=== PATIENT | female | born 1950 | race African-American/Black ===

== ENCOUNTER 2017-12-20 10:03 | Emergency (ER) | payer OTHER, MEDICARE ==
[~2017-12-20] VITALS: Ht 162.6 cm; Wt 64.4 kg
[~2017-12-20 10:03] MED LIST: ASPIRIN81 M4 PO; ATORVASTATIN CA40 M1 PO; CLONAZEPAM1 M2 PO; GLIPIZIDE5 M2 PO; LISINOPRIL20 M1 PO; METFORMIN HCL1000 M1 PO; PAROXETINE HCL40 M1 PO; PLAVIX75 M1 PO; PRAVASTATIN SOD40 M2 PO; ZITHROMAX250 M2 PO
--- NOTE | 2017-12-20 10:12 | ED GENERAL ADULT ---
History of Present Illness General Chief Complaint: General Adult Stated Complaint: BIBA FOR ABNORMAL LABS Source: patient, old records, EMS Exam Limitations: no limitations Vital Signs & Intake/Output Vital Signs & Intake/Output Vital Signs Date Time Temp Pulse Resp B/P B/P Pulse O2 O2 Flow FiO2 Mean Ox Delivery Rate 12/20 1358 96.7 78 18 136/58 96 Room Air 12/20 1144 84 18 117/63 95 Room Air 12/20 1006 98.4 89 18 137/93 97 Room Air Allergies Coded Allergies: nut - unspecified (ANGIODEMA 02/27/16) shellfish derived (UNKNOWN 02/27/16) Reconcile Medications Aspirin (Ecotrin*) 81 MG TABLET.DR 1 TAB PO DAILY HEART HEALTH (Reported) Atorvastatin Calcium 40 MG TABLET 1 TAB PO DAILY HIGH CHOLESTROL Clonazepam 1 MG TABLET 1 TAB PO BIDP PRN anxiety (Reported) Clopidogrel Bisulfate (Plavix) 75 MG TABLET 75 MG PO DAILY STROKE PREVENTION Insulin Glargine,Hum.rec.anlog (Lantus Solostar) 100 UNIT/ML (3 ML) INSULN.PEN 30 UNIT SC QPM DIABETES (Reported) Lisinopril 20 MG TABLET 1 TAB PO DAILY htn (Reported) Metformin HCl 1,000 MG TABLET 1 TAB PO BID diabetes (Reported) Ondansetron HCl 4 MG TABLET 0.5 TAB PO BID NAUSEA (Reported) Paroxetine HCl 40 MG TABLET 1 TAB PO DAILY mood d/o (Reported) Triage Nurses Notes Reviewed? yes HPI: Patient states that she was sent in by her doctor for internal bleeding. Patient states that she had blood work performed recently and received a call from her doctor this morning telling her to come to the emergency department. Patient's only complaint is suprapubic abdominal pain that she has said has been constant for the past few weeks. There is no radiation. There is no aggravating or mitigating factors. The pain is crampy in nature. She rates as mild on the pain scale. Patient states that she had an ultrasound and it showed that both ovaries were on the same side. She states that the ultrasound was done in her doctor's office. She states that a few weeks ago she had one episode of bright red blood per rectum but has not had any episodes since then. Past History Travel History Traveled to [place] past 21 day No Medical History Any Pertinent Medical History? 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 No Review of Systems Review of Systems Constitutional: Reports: no symptoms. EENTM: Reports: no symptoms. Respiratory: Reports: no symptoms. Cardiovascular: Reports: no symptoms. GI: Reports: see HPI, abdominal pain. Genitourinary: Reports: no symptoms. Musculoskeletal: Reports: no symptoms. Skin: Reports: no symptoms. Neurological/Psychological: Reports: no symptoms. Hematologic/Endocrine: Reports: no symptoms. Immunologic/Allergic: Reports: no symptoms. All Other Systems: Reviewed and Negative Physical Exam Physical Exam General Appearance: well developed/nourished, alert, awake, mild distress Head: atraumatic, normal appearance Eyes: Bilateral: PERRL, EOMI. Ears, Nose, Throat: normal pharynx, normal ENT inspection, hearing grossly normal Neck: normal inspection, supple, full range of motion Respiratory: normal breath sounds, chest non-tender, no respiratory distress, lungs clear Cardiovascular: regular rate/rhythm, normal peripheral pulses Gastrointestinal: normal bowel sounds, soft, non-tender, no organomegaly Rectal: normal exam, normal rectal tone, heme negative stool Back: normal inspection, normal range of motion Extremities: normal inspection, normal capillary refill, normal range of motion, no edema Neurologic/Psych: no motor/sensory deficits, awake, alert, oriented x 3, normal mood/affect Skin: intact, normal color, warm/dry Lymphatic: no anterior cervical rubia Core Measures ACS in differential dx? No CVA/TIA Diagnosis: No Sepsis Present: No Sepsis Focused Exam Completed? No Progress Differential Diagnoses I considered the following diagnoses in my evaluation of the patient: [Anemia, electrolyte abnormality, GI bleed, ovarian mass] Plan of Care: Orders Procedure Date/time Status Add-on Test (ER Only) 12/20 1019 Active URINALYSIS 12/20 1019 Complete COMPREHENSIVE METABOLIC PANEL 12/20 1010 Complete CBC WITHOUT DIFFERENTIAL 12/20 1010 Complete TYPE & SCREEN (NOT X-MATCH) 12/20 1010 Complete TROPONIN LEVEL 12/20 1009 Complete MAGNESIUM 12/20 1009 Complete EKG 12/20 1008 Active Laboratory Tests 12/20/17 1150: Urine Color YEL, Urine Clarity CLEAR, Urine pH 7.0, Ur Specific Arnold <= 1.005 , Urine Protein NEG, Urine Ketones NEG, Urine Nitrite NEG, Urine Bilirubin NEG, Urine Urobilinogen 0.2, Ur Leukocyte Esterase NEG, Ur Microscopic EXAM NOT REQUIRED, Urine Hemoglobin NEG, Urine Glucose NEG 12/20/17 1020: CBC w Diff NO MAN DIFF REQ, RBC 4.30, MCV 65.2 L, MCH 20.2 L, MCHC 31.0 L, RDW 20.0 H, MPV 9.1, Gran % 70.5, Lymphocytes % 22.1, Monocytes % 5.0, Eosinophils % 1.3, Basophils % 1.1, Absolute Granulocytes 7.2 H, Absolute Lymphocytes 2.3, Absolute Monocytes 0.5, Absolute Eosinophils 0.1, Absolute Basophils 0.1 12/20/17 1009: Anion Gap 10, Estimated GFR > 60, BUN/Creatinine Ratio 17.5, Glucose 231 H, Calcium 9.5, Magnesium 1.7, Total Bilirubin 0.6, AST 20, ALT 21, Alkaline Phosphatase 78, Troponin I < 0.01, Total Protein 7.4, Albumin 3.9, Globulin 3.5, Albumin/Globulin Ratio 1.1 Diagnostic Imaging: Viewed by Me: CT Scan. Discussed w/RAD: CT Scan. Radiology Impression: PATIENT: RASHI SALAZAR PRESENT AGE: 67 PATIENT ACCOUNT NO: [id number] : 49 LOCATION: [facility] ORDERING PHYSICIAN: Kali Mock MD SERVICE DATE: 12/20/17-1226 EXAM TYPE: CAT - CT ABD & PELVIS W/O IV CONTRAS EXAMINATION: CT ABDOMEN AND PELVIS WITHOUT CONTRAST CLINICAL INFORMATION: Right lower quadrant pain. Evaluate for appendicitis. COMPARISON: 08/26/2013 TECHNIQUE: Multidetector volumetric imaging was performed from the superior aspect of the liver through the pubic symphysis. Sagittal and coronal reformatted images were obtained on the technologist's workstation. DLP: 248 mGy-cm FINDINGS: LUNG BASES: Scattered linear opacities of mild atelectasis or scarring in lung bases. No basilar consolidation or pleural effusion. LIVER, GALLBLADDER, AND BILIARY TREE: Unremarkable. PANCREAS: Unremarkable. SPLEEN: Unremarkable. ADRENAL GLANDS: Unremarkable. KIDNEYS AND URETERS: Kidneys have normal size, cortical thickness and attenuation. No nephrolithiasis or hydronephrosis. 0.8 cm cortical cyst of the lower pole of the right kidney is stable compared to 08/16/2013. The ureters are unremarkable. BLADDER: Unremarkable. GASTROINTESTINAL TRACT: Bowel loops are normal in caliber. A small, 0.5 cm diameter tubular structure extending medial to the cecum likely represents the normal appendix. No inflammatory changes in the right lower quadrant. No focal colonic wall thickening or pericolonic fat stranding. No evidence of acute inflammation or obstruction along the gastrointestinal tract. Moderate to large amount stool is present within the colon. Consider possibility of constipation. No ascites or pneumoperitoneum. ABDOMINAL WALL: Unremarkable. LYMPH NODES: Normal. VASCULAR: Atherosclerotic calcification of abdominal aorta and iliac arteries without aneurysm. No retroperitoneal hematoma. PELVIC VISCERA: The uterus and adnexa are unremarkable. No pelvic free fluid. OSSEOUS STRUCTURES: No suspicious osseous lesions. The visualized lower thoracic and lumbar vertebra have normal height and alignment. Mild discovertebral degenerative change at L3-L4. No aggressive osseous lesion. IMPRESSION: No acute findings in the abdomen or pelvis. DICTATED BY: Scottie Lockhart MD DATE/TIME DICTATED:12/20/171403 SOLICITING FREIGHT AGENT: PERLA DATE/TIME TRANSCRIBED:12/20/171403 CONFIDENTIAL, DO NOT COPY WITHOUT APPROPRIATE AUTHORIZATION. <Electronically signed in Other Vendor System> SIGNED BY: Scottie Lockhart MD 12/20/17 2147 Initial ED EKG: NSR, no ST T wave changes Prior EKG: unchanged Comments: Patient has no appointment with gastroenterology workup. Patient does not need a transfusion at this time. Patient stable for discharge. Departure Departure Disposition: HOME OR SELF CARE Condition: Stable Clinical Impression Primary Impression: Anemia Referrals: Patient Has No Primary Care Dr Additional Instructions: Follow-up with the bottle carrier as provided by your doctor. Return if symptoms worsen or for any concerns. Departure Forms: Customer Survey General Discharge Information Critical Care Note Critical Care Note Critical Care Time: non-applicable
[2017-12-20] MEDS ORDERED: ONDANSETRON HCL4 MG PO (10:24)
[2017-12-20] MEDS ORDERED: ASPIRIN EC81 M1 PO (10:26)
[2017-12-20] MEDS ORDERED: LANTUS SOL100 UNIT/1 SC (10:26)
[2017-12-20 10:33] LABS: ABSOLUTE BASOPHIL COUNT 0.1 /CUMM (0.0-0.2); ABSOLUTE EOSINOPHIL COUNT 0.1 /CUMM (0.0-0.7); ABSOLUTE GRANULOCYTE CT 7.2 /CUMM (1.4-6.5); ABSOLUTE LYMPH COUNT 2.3 /CUMM (1.2-3.4); ABSOLUTE MONOCYTE COUNT 0.5 /CUMM (0.10-0.60); BASOPHIL % 1.1 % (0.0-2.0); EOSINOPHIL % 1.3 % (0-5); GRANULOCYTE % 70.5 % (42.2-75.2); MEAN CORPUSCULAR HGB 20.2 PG (27.0-31.0); MEAN CORPUSCULAR VOLUME 65.2 FL (81.0-99.0); MEAN PLATELET VOLUME 9.1 FL (7.4-10.4); PLATELET COUNT 394 /CUMM (130-400); WHITE BLOOD CELL COUNT 10.2 /CUMM (4.8-10.8)
--- NOTE | 2017-12-20 14:14 | CT SCAN REPORT ---
EXAMINATION: CT ABDOMEN AND PELVIS WITHOUT CONTRAST CLINICAL INFORMATION: Right lower quadrant pain. Evaluate for appendicitis. COMPARISON: 08/26/2013 TECHNIQUE: Multidetector volumetric imaging was performed from the superior aspect of the liver through the pubic symphysis. Sagittal and coronal reformatted images were obtained on the technologist's workstation. DLP: 248 mGy-cm FINDINGS: LUNG BASES: Scattered linear opacities of mild atelectasis or scarring in lung bases. No basilar consolidation or pleural effusion. LIVER, GALLBLADDER, AND BILIARY TREE: Unremarkable. PANCREAS: Unremarkable. SPLEEN: Unremarkable. ADRENAL GLANDS: Unremarkable. KIDNEYS AND URETERS: Kidneys have normal size, cortical thickness and attenuation. No nephrolithiasis or hydronephrosis. 0.8 cm cortical cyst of the lower pole of the right kidney is stable compared to 08/16/2013. The ureters are unremarkable. BLADDER: Unremarkable. GASTROINTESTINAL TRACT: Bowel loops are normal in caliber. A small, 0.5 cm diameter tubular structure extending medial to the cecum likely represents the normal appendix. No inflammatory changes in the right lower quadrant. No focal colonic wall thickening or pericolonic fat stranding. No evidence of acute inflammation or obstruction along the gastrointestinal tract. Moderate to large amount stool is present within the colon. Consider possibility of constipation. No ascites or pneumoperitoneum. ABDOMINAL WALL: Unremarkable. LYMPH NODES: Normal. VASCULAR: Atherosclerotic calcification of abdominal aorta and iliac arteries without aneurysm. No retroperitoneal hematoma. PELVIC VISCERA: The uterus and adnexa are unremarkable. No pelvic free fluid. OSSEOUS STRUCTURES: No suspicious osseous lesions. The visualized lower thoracic and lumbar vertebra have normal height and alignment. Mild discovertebral degenerative change at L3-L4. No aggressive osseous lesion. IMPRESSION: No acute findings in the abdomen or pelvis.
[2017-12-20 15:20] VITALS: BP 115/63
== END 2017-12-20 15:36 ==
LOC: ERH 10:03
PROVIDERS: Emergency Medicine
DX: D64.9 Anemia, unspecified (principal)
CPT/HCPCS: 74176; 81003; 93005; 93010; 96360; 96361